=== PATIENT | male | born 1935 | race Asian ===

== ENCOUNTER 2016-10-26 12:00 | Inpatient (IN) | payer MEDICARE, MEDICAID ==
[~2016-10-26] VITALS: Ht 162.6 cm; Wt 57.3 kg
[~2016-10-26 12:00] MED LIST: ASPI-825 PO; CLOP75 PO; EZET1TAB8 PO; GLYB5TAB8 PO; PIOG15TA13 PO; VALS160T2 PO
[2016-10-26] MEDS ORDERED: SIMV5TAB6 PO (12:17)
[2016-10-26] MEDS ORDERED: ROSU20 PO (12:17)
[2016-10-26] MEDS ORDERED: MULT-1259 PO (12:17)
[2016-10-26 13:47] LABS: BASOPHILS % (AUTO) 0.2 % (0.0-2.0); EOSINOPHILS % (AUTO) 3.6 % (1.0-6.0); HEMOGLOBIN 12.5 g/dL (13.5-17.5); LYMPHOCYTES # (AUTO) 1.3 K/uL (1.0-4.8); LYMPHOCYTES % (AUTO) 21.1 % (22.0-44.0); MEAN CORPUSCULAR HGB CONC 32.8 G/dL (31.0-37.0); MEAN CORPUSCULAR VOLUME 91 fL (80-100); MONOCYTES # (AUTO) 0.5 K/uL (0.1-1.0); MONOCYTES % (AUTO) 8.4 % (2.0-9.0); NEUTROPHILS % (AUTO) 66.7 % (40.0-70.0); PLATELET COUNT (AUTO) 222 K/uL (150-450); RED BLOOD CELL COUNT(AUTO) 4.16 MIL/uL (4.50-5.90); RED CELL DISTRIBUTION WIDTH 13.2 % (11.5-14.5); WHITE BLOOD COUNT (AUTO) 6.1 K/uL (4.5-11.0)
[2016-10-26 13:57] LABS: PROTHROMBIN TIME 10.3 SEC (9.4-11.6)
[2016-10-26 14:01] LABS: ANION GAP 3 mmol/L (8-16); CARBON DIOXIDE 29 mmol/L (22-29); CHLORIDE 106 mmol/L (98-107); CREATININE 4.57 mg/dL (0.60-1.30); GLOMERULAR FILTR. RATE CALC 12 mL/min (>60); POTASSIUM 3.3 mmol/L (3.5-5.1); SODIUM SERUM 138 mmol/L (136-145); UREA NITROGEN, BLOOD 38 mg/dL (7-18)
[2016-10-26 14:15] LABS: B-TYPE NATRIURETIC PEPTIDE 800 pg/mL (0-100)
[2016-10-26] MEDS ORDERED: CloNIDine HCL 0.2 MG TABLET PO ONE (14:15)
[2016-10-26 14:31] LABS: APPEARANCE,URINE CLEAR (CLEAR); GLUCOSE, URINE (UA) 500 mg/dL (NEGATIVE); KETONES,URINE NEGATIVE (NEGATIVE); LEUKOCYTE ESTERASE ,URINE NEGATIVE (NEGATIVE); OCCULT BLOOD,URINE SMALL (NEGATIVE); PROTEIN,URINE SEE CONFIRM (NEGATIVE)
[2016-10-26 14:32] LABS: ADD UA MICROSCOPIC YES
[2016-10-26 14:35] LABS: SULFOSALICYLIC ACID,URINE Negative (Negative)
[2016-10-26 14:39] LABS: ALANINE AMINOTRANSFERASE 16 U/L (12-78); ALBUMIN 2.6 g/dL (3.4-5.0); ASPARTATE AMINOTRANSFERASE 19 U/L (15-37); BILIRUBIN,TOTAL 0.4 mg/dL (0.1-1.0); CREATINE KINASE MB 2.5 ng/mL (0-5); CREATINE KINASE, TOTAL 213 U/L (39-308); TOTAL PROTEIN, SERUM 6.7 g/dL (6.4-8.2)
[2016-10-26 14:42] LABS: RBC,URINE 0-2 /HPF (0-2); WBC,URINE 0-2 /HPF (0-5)
[2016-10-26] MEDS ORDERED: FUROSEMIDE 40 MG/4 ML VIAL IVP ONE (14:45)
[2016-10-26 14:46] LABS: GLUCOSE,POINT OF CARE 131 MG/DL (70-110)
[2016-10-26] MEDS ORDERED: POTASSIUM CHLORIDE 20 MEQ ER TABLET PO ONE (15:00)
[2016-10-26] MEDS ORDERED: NITROGLYCERIN 2% (1 GM=INCH) PACKET TP ONE (15:30)
[2016-10-26] MEDS ORDERED: ACETAMINOPHEN 325 MG TABLET PO PRN ×2 (16:15→21:45)
[2016-10-26] MEDS ORDERED: ONDANSETRON HCL 4 MG/2 ML VIAL IVP PRN ×2 (16:15→21:45)
[2016-10-26] MEDS ORDERED: 0.9% SODIUM CHLORIDE 10 ML SYRINGE IVP PRN (16:15)
[2016-10-26] MEDS ORDERED: SODIUM CHLORIDE 0.9% 100 ML ONE (17:03)
[2016-10-26] MEDS ORDERED: IOVERSOL 350 MG/ML 100 ML VIAL ONE (17:03)
[2016-10-26 18:00] VITALS: BP 224/95
[2016-10-26] MEDS ORDERED: CLOPIDOGREL BISULFATE 75 MG TABLET PO ONE (18:15)
[2016-10-26] MEDS ORDERED: ASPIRIN 81 MG CHEWABLE TABLET PO ONE (18:15)
[2016-10-26] MEDS: NITROGLYCERIN 50 MG/D5% WATER 250 ML IV PRN (19:35)
[2016-10-26 20:00] VITALS: BP 198/82
[2016-10-26] MEDS ORDERED: ZOLPIDEM TARTRATE 5 MG TABLET PO PRN (21:45)
[2016-10-26] MEDS: HEPARIN SODIUM,PORCINE 5,000 UNITS/ML VIAL SQ SCH (23:23)
[2016-10-27] VITALS: BP 198/81
[2016-10-27] MEDS: HydrALAZINE HCL 20 MG/ML VIAL IVP PRN ×3 (01:47→21:06)
[2016-10-27 04:00] VITALS: BP 175/96
[2016-10-27 05:51] LABS: BASOPHILS % (AUTO) 0.3 % (0.0-2.0); EOSINOPHILS % (AUTO) 2.4 % (1.0-6.0); HEMATOCRIT 35.9 % (41-53); HEMOGLOBIN 11.7 g/dL (13.5-17.5); LYMPHOCYTES # (AUTO) 1.6 K/uL (1.0-4.8); LYMPHOCYTES % (AUTO) 19.6 % (22.0-44.0); MEAN CORPUSCULAR HEMOGLOBIN 30.1 pg (26.0-34.0); MEAN CORPUSCULAR HGB CONC 32.6 G/dL (31.0-37.0); MEAN CORPUSCULAR VOLUME 92 fL (80-100); MONOCYTES # (AUTO) 0.6 K/uL (0.1-1.0); NEUTROPHILS # (AUTO) 5.8 K/uL (1.8-7.7); NEUTROPHILS % (AUTO) 70.7 % (40.0-70.0); PLATELET COUNT (AUTO) 212 K/uL (150-450); RED BLOOD CELL COUNT(AUTO) 3.89 MIL/uL (4.50-5.90); RED CELL DISTRIBUTION WIDTH 13.5 % (11.5-14.5); WHITE BLOOD COUNT (AUTO) 8.2 K/uL (4.5-11.0)
[2016-10-27] MEDS: NITROGLYCERIN 50 MG/D5% WATER 250 ML IV PRN ×2 (06:26→16:11)
[2016-10-27 06:53] LABS: ALBUMIN 2.5 g/dL (3.4-5.0); BILIRUBIN,TOTAL 0.4 mg/dL (0.1-1.0); CALCIUM, TOTAL 7.8 mg/dL (8.8-10.5); CREATININE 4.57 mg/dL (0.60-1.30); POTASSIUM 4.2 mmol/L (3.5-5.1); TOTAL PROTEIN, SERUM 6.1 g/dL (6.4-8.2)
[2016-10-27 08:00] VITALS: BP 165/65
[2016-10-27] MEDS ORDERED: GlyBURIDE 5 MG TABLET PO SCH (08:00)
[2016-10-27] MEDS ORDERED: MISC MED-CONVERTED FROM AMBULATORY (Aspirin 81 MG) PO SCH (09:00)
[2016-10-27] MEDS ORDERED: PIOGLITAZONE HCL 15 MG TABLET PO SCH (09:00)
[2016-10-27] MEDS ORDERED: CLOPIDOGREL BISULFATE 75 MG TABLET PO SCH (09:00)
[2016-10-27] MEDS: CLOPIDOGREL BISULFATE 75 MG TABLET PO SCH (09:35)
[2016-10-27] MEDS: VALSARTAN 160 MG TABLET PO SCH (09:35)
[2016-10-27] MEDS: PANTOPRAZOLE SODIUM 40 MG DR TABLET PO SCH (09:35)
[2016-10-27] MEDS: ASPIRIN 81 MG CHEWABLE TABLET PO SCH (09:35)
[2016-10-27] MEDS: HEPARIN SODIUM,PORCINE 5,000 UNITS/ML VIAL SQ SCH ×2 (09:35→16:00)
[2016-10-27] MEDS: ROSUVASTATIN CALCIUM 20 MG TABLET PO SCH (09:36)
[2016-10-27 12:00] VITALS: BP 142/66
[2016-10-27 16:00] VITALS: BP 165/83
[2016-10-27] MEDS ORDERED: DEXTROSE 50%-WATER 25 GM/50 ML SYRINGE IVP PRN (16:30)
[2016-10-27 20:00] VITALS: BP 191/123
[2016-10-27] MEDS: OxyCODONE HCL/ACETAMINOPHEN 5-325 MG TABLET PO PRN (20:30)
[2016-10-27] MEDS: INSULIN ASPART 100 UNITS/ML SQ PRN (20:32)
[2016-10-28] VITALS: BP 160/108
[2016-10-28] MEDS: HEPARIN SODIUM,PORCINE 5,000 UNITS/ML VIAL SQ SCH ×4 (00:08→23:46)
[2016-10-28 04:00] VITALS: BP 181/72
[2016-10-28] MEDS: HydrALAZINE HCL 20 MG/ML VIAL IVP PRN ×5 (04:44→23:47)
[2016-10-28 05:07] LABS: GLUCOSE COMMENT 1 Received Meds; GLUCOSE,POINT OF CARE 366 MG/DL (70-110)
[2016-10-28 05:07] LABS: GLUCOSE,POINT OF CARE 142 MG/DL (70-110)
[2016-10-28 05:23] LABS: BASOPHILS # (AUTO) 0.02 K/uL (0.00-0.20); BASOPHILS % (AUTO) 0.2 % (0.0-2.0); EOSINOPHILS % (AUTO) 0.01 % (1.0-6.0); HEMATOCRIT 37.2 % (41-53); HEMOGLOBIN 12.6 g/dL (13.5-17.5); LYMPHOCYTES # (AUTO) 1.4 K/uL (1.0-4.8); LYMPHOCYTES % (AUTO) 12.4 % (22.0-44.0); MEAN CORPUSCULAR HEMOGLOBIN 30.7 pg (26.0-34.0); MEAN CORPUSCULAR HGB CONC 33.8 G/dL (31.0-37.0); MEAN CORPUSCULAR VOLUME 91 fL (80-100); MONOCYTES # (AUTO) 0.9 K/uL (0.1-1.0); MONOCYTES % (AUTO) 7.7 % (2.0-9.0); NEUTROPHILS % (AUTO) 79.7 % (40.0-70.0); PLATELET COUNT (AUTO) 259 K/uL (150-450); RED BLOOD CELL COUNT(AUTO) 4.09 MIL/uL (4.50-5.90); RED CELL DISTRIBUTION WIDTH 14.1 % (11.5-14.5); WHITE BLOOD COUNT (AUTO) 11.3 K/uL (4.5-11.0)
[2016-10-28 05:29] LABS: CALCIUM, TOTAL 8.5 mg/dL (8.8-10.5); CREATININE 5.34 mg/dL (0.60-1.30); POTASSIUM 3.7 mmol/L (3.5-5.1)
[2016-10-28 08:00] VITALS: BP 204/141
[2016-10-28] MEDS ORDERED: LABETALOL HCL 200 MG in DEXTROSE 5%-WATER 160 ML IV PRN (08:15)
[2016-10-28] MEDS: PANTOPRAZOLE SODIUM 40 MG DR TABLET PO SCH (08:18)
[2016-10-28] MEDS: ASPIRIN 81 MG CHEWABLE TABLET PO SCH (08:18)
[2016-10-28] MEDS: ROSUVASTATIN CALCIUM 20 MG TABLET PO SCH (08:18)
[2016-10-28] MEDS: VALSARTAN 160 MG TABLET PO SCH (08:19)
[2016-10-28] MEDS: CLOPIDOGREL BISULFATE 75 MG TABLET PO SCH (08:19)
[2016-10-28] MEDS ORDERED: AmLODIPine BESYLATE 2.5 MG TABLET PO SCH (09:00)
[2016-10-28 12:00] VITALS: BP 172/139
[2016-10-28] MEDS: INSULIN ASPART 100 UNITS/ML SQ PRN ×3 (12:42→21:07)
[2016-10-28 14:16] LABS: GLUCOSE COMMENT 1 Received Meds; GLUCOSE,POINT OF CARE 249 MG/DL (70-110)
[2016-10-28 16:00] VITALS: BP 146/74
[2016-10-28] MEDS ORDERED: 0.9% SODIUM CHLORIDE 10 ML SYRINGE IVP PRN (16:15)
[2016-10-28 19:21] LABS: HEMOGLOBIN A1C 9.1 % (4.5-6.2)
[2016-10-28 19:32] LABS: CHOL/HDL RATIO 2.6 (4.2-7.3); THYROID STIMULATING HORMONE 2.03 uIU/mL (0.36-3.74)
[2016-10-28 20:00] VITALS: BP 158/48
[2016-10-29] VITALS (8 sets, daily range): BP systolic 135–181; BP diastolic 58–115
[2016-10-29] MEDS: OxyCODONE HCL/ACETAMINOPHEN 5-325 MG TABLET PO PRN (01:38)
[2016-10-29] MEDS: HydrALAZINE HCL 20 MG/ML VIAL IVP PRN ×2 (04:05→09:03)
[2016-10-29 05:32] LABS: CREATININE 6.26 mg/dL (0.60-1.30); MAGNESIUM 2.6 mg/dL (1.80-2.40); PHOSPHORUS 5.8 mg/dL (2.5-4.9); POTASSIUM 4.6 mmol/L (3.5-5.1)
[2016-10-29 05:50] LABS: BASOPHILS % (AUTO) 0.1 % (0.0-2.0); EOSINOPHILS % (AUTO) 0 % (1.0-6.0); HEMATOCRIT 36.1 % (41-53); HEMOGLOBIN 11.9 g/dL (13.5-17.5); LYMPHOCYTES # (AUTO) 0.9 K/uL (1.0-4.8); LYMPHOCYTES % (AUTO) 8.8 % (22.0-44.0); MEAN CORPUSCULAR HEMOGLOBIN 30.3 pg (26.0-34.0); MEAN CORPUSCULAR VOLUME 92 fL (80-100); MONOCYTES # (AUTO) 0.6 K/uL (0.1-1.0); MONOCYTES % (AUTO) 5.6 % (2.0-9.0); NEUTROPHILS # (AUTO) 8.7 K/uL (1.8-7.7); NEUTROPHILS % (AUTO) 85.5 % (40.0-70.0); PLATELET COUNT (AUTO) 247 K/uL (150-450); RED BLOOD CELL COUNT(AUTO) 3.94 MIL/uL (4.50-5.90); RED CELL DISTRIBUTION WIDTH 13.9 % (11.5-14.5); WHITE BLOOD COUNT (AUTO) 10.2 K/uL (4.5-11.0)
[2016-10-29] MEDS: INSULIN ASPART 100 UNITS/ML SQ PRN ×4 (06:00→20:42)
[2016-10-29 06:06] LABS: GLUCOSE COMMENT 1 Received Meds; GLUCOSE,POINT OF CARE 204 MG/DL (70-110)
[2016-10-29 06:07] LABS: GLUCOSE COMMENT 1 Received Meds; GLUCOSE,POINT OF CARE 149 MG/DL (70-110)
[2016-10-29] MEDS: HEPARIN SODIUM,PORCINE 5,000 UNITS/ML VIAL SQ SCH ×2 (08:32→17:34)
[2016-10-29] MEDS: ASPIRIN 325 MG TABLET PO SCH (08:33)
[2016-10-29] MEDS: CLOPIDOGREL BISULFATE 75 MG TABLET PO SCH (08:33)
[2016-10-29] MEDS: PANTOPRAZOLE SODIUM 40 MG DR TABLET PO SCH (08:33)
[2016-10-29] MEDS: AmLODIPine BESYLATE 10 MG TABLET PO SCH (08:33)
[2016-10-29] MEDS: ROSUVASTATIN CALCIUM 20 MG TABLET PO SCH (08:35)
[2016-10-29] MEDS ORDERED: BISACODYL 5 MG EC TABLET PO PRN (11:30)
[2016-10-29] MEDS: CARVEDILOL 3.125 MG TABLET PO SCH ×2 (12:23→20:41)
[2016-10-29] MEDS ORDERED: FUROSEMIDE 40 MG/4 ML VIAL IVP ONE (14:15)
[2016-10-29 15:56] LABS: GLUCOSE,POINT OF CARE 164 MG/DL (70-110)
[2016-10-29] MEDS ORDERED: METOLAZONE 5 MG TABLET PO ONE (17:15)
[2016-10-29 17:31] LABS: GLUCOSE,POINT OF CARE 164 MG/DL (70-110)
[2016-10-29 19:31] LABS: GLUCOSE COMMENT 1 Received Meds; GLUCOSE,POINT OF CARE 161 MG/DL (70-110)
[2016-10-29] MEDS: BUMETANIDE 0.25 MG/ML 10 ML VIAL IVP SCH (20:41)
[2016-10-30] VITALS (10 sets, daily range): BP systolic 143–188; BP diastolic 68–88
[2016-10-30] MEDS: HEPARIN SODIUM,PORCINE 5,000 UNITS/ML VIAL SQ SCH ×3 (00:09→16:00)
[2016-10-30] MEDS: HydrALAZINE HCL 20 MG/ML VIAL IVP PRN ×2 (05:53→11:40)
[2016-10-30 06:51] LABS: GLUCOSE,POINT OF CARE 137 MG/DL (70-110)
[2016-10-30 07:16] LABS: BASOPHILS # (AUTO) 0.02 K/uL (0.00-0.20); BASOPHILS % (AUTO) 0.2 % (0.0-2.0); EOSINOPHILS % (AUTO) 1.08 % (1.0-6.0); HEMATOCRIT 37.1 % (41-53); HEMOGLOBIN 12.5 g/dL (13.5-17.5); LYMPHOCYTES # (AUTO) 1.2 K/uL (1.0-4.8); LYMPHOCYTES % (AUTO) 12.9 % (22.0-44.0); MEAN CORPUSCULAR HEMOGLOBIN 30.6 pg (26.0-34.0); MEAN CORPUSCULAR HGB CONC 33.7 G/dL (31.0-37.0); MEAN CORPUSCULAR VOLUME 91 fL (80-100); MONOCYTES # (AUTO) 0.7 K/uL (0.1-1.0); MONOCYTES % (AUTO) 7.5 % (2.0-9.0); NEUTROPHILS # (AUTO) 7.3 K/uL (1.8-7.7); NEUTROPHILS % (AUTO) 78.3 % (40.0-70.0); PLATELET COUNT (AUTO) 251 K/uL (150-450); RED BLOOD CELL COUNT(AUTO) 4.08 MIL/uL (4.50-5.90); RED CELL DISTRIBUTION WIDTH 14.1 % (11.5-14.5); WHITE BLOOD COUNT (AUTO) 9.3 K/uL (4.5-11.0)
[2016-10-30 07:52] LABS: CALCIUM, TOTAL 7.8 mg/dL (8.8-10.5); CREATININE 6.75 mg/dL (0.60-1.30); MAGNESIUM 2.5 mg/dL (1.80-2.40); PHOSPHORUS 5.3 mg/dL (2.5-4.9); POTASSIUM 4.5 mmol/L (3.5-5.1)
[2016-10-30] MEDS: ASPIRIN 325 MG TABLET PO SCH (08:26)
[2016-10-30] MEDS: CARVEDILOL 3.125 MG TABLET PO SCH ×2 (08:26→21:40)
[2016-10-30] MEDS: ROSUVASTATIN CALCIUM 20 MG TABLET PO SCH (08:26)
[2016-10-30] MEDS: CLOPIDOGREL BISULFATE 75 MG TABLET PO SCH (08:27)
[2016-10-30] MEDS: AmLODIPine BESYLATE 10 MG TABLET PO SCH (08:27)
[2016-10-30] MEDS: BUMETANIDE 0.25 MG/ML 10 ML VIAL IVP SCH ×2 (08:28→21:39)
[2016-10-30] MEDS: PANTOPRAZOLE SODIUM 40 MG DR TABLET PO SCH (08:29)
[2016-10-30] MEDS ORDERED: HEPARIN SODIUM 1000 UNITS/NS 500 ML ONE (12:23)
[2016-10-30] MEDS ORDERED: LIDOCAINE HCL 1%/EPI 1:200,000/PF 10 ML VIAL ONE (12:24)
[2016-10-30] MEDS ORDERED: HEPARIN SODIUM,PORCINE 1,000 UNITS/ML 10 ML VIAL ONE (12:24)
[2016-10-30] MEDS ORDERED: MIDAZOLAM HCL 2 MG/2 ML VIAL ONE (12:42)
[2016-10-30] MEDS ORDERED: FentaNYL CITRATE-PF 100 MCG/2 ML VIAL ONE (12:42)
[2016-10-30] MEDS: INSULIN ASPART 100 UNITS/ML SQ PRN ×3 (19:18→21:40)
[2016-10-31] VITALS (7 sets, daily range): BP systolic 149–200; BP diastolic 59–104
[2016-10-31] MEDS: HEPARIN SODIUM,PORCINE 5,000 UNITS/ML VIAL SQ SCH ×4 (00:50→23:50)
[2016-10-31 02:52] LABS: GLUCOSE COMMENT 1 Received Meds; GLUCOSE,POINT OF CARE 162 MG/DL (70-110)
[2016-10-31] MEDS: INSULIN ASPART 100 UNITS/ML SQ PRN ×4 (06:10→20:27)
[2016-10-31 07:27] LABS: GLUCOSE COMMENT 1 Received Meds; GLUCOSE,POINT OF CARE 166 MG/DL (70-110)
[2016-10-31] MEDS: HydrALAZINE HCL 20 MG/ML VIAL IVP PRN (07:35)
[2016-10-31 08:16] LABS: CREATININE 5.57 mg/dL (0.60-1.30); MAGNESIUM 2.3 mg/dL (1.80-2.40); PHOSPHORUS 4.8 mg/dL (2.5-4.9)
[2016-10-31] MEDS ORDERED: SODIUM CHLORIDE 0.9% 2,000 ML IV ONE (08:34)
[2016-10-31] MEDS: BUMETANIDE 0.25 MG/ML 10 ML VIAL IVP SCH ×2 (09:00→20:07)
[2016-10-31 09:41] LABS: ALBUMIN URINE (ELP24) 60.8 %; ALPHA-1 URINE (ELP24) 0.6 %; ALPHA-2 URINE(ELP24) 7.8 %; BETA URINE(ELP24) 12.3 %; GAMMA URINE(ELP24) 18.5 %; TOTAL PROTEIN URINE 853.5 mg/dL (Not Estab.)
[2016-10-31 11:49] LABS: GLUCOSE,POINT OF CARE 186 MG/DL (70-110)
[2016-10-31 12:03] LABS: GLUCOSE,POINT OF CARE 147 MG/DL (70-110)
[2016-10-31] MEDS: PANTOPRAZOLE SODIUM 40 MG DR TABLET PO SCH (12:11)
[2016-10-31] MEDS: CLOPIDOGREL BISULFATE 75 MG TABLET PO SCH (12:11)
[2016-10-31] MEDS: ASPIRIN 325 MG TABLET PO SCH (12:11)
[2016-10-31] MEDS: AmLODIPine BESYLATE 10 MG TABLET PO SCH (12:11)
[2016-10-31 12:12] LABS: GLUCOSE,POINT OF CARE 144 MG/DL (70-110)
[2016-10-31] MEDS: ROSUVASTATIN CALCIUM 20 MG TABLET PO SCH (12:12)
[2016-10-31] MEDS ORDERED: HEPARIN SODIUM,PORCINE 5,000 UNITS/ML VIAL SQ ONE (17:12)
[2016-10-31] MEDS ORDERED: HEPARIN SODIUM,PORCINE 1,000 UNITS/ML VIAL IVP ONE ×2 (17:12→18:35)
[2016-10-31] MEDS: CARVEDILOL 6.25 MG TABLET PO SCH (20:07)
[2016-11-01 04:30] VITALS: BP 158/90
[2016-11-01] MEDS: INSULIN ASPART 100 UNITS/ML SQ PRN ×4 (06:10→20:14)
[2016-11-01 07:32] LABS: GLUCOSE,POINT OF CARE 148 MG/DL (70-110)
[2016-11-01 07:34] VITALS: BP 168/91
[2016-11-01 07:36] LABS: GLUCOSE COMMENT 1 Received Meds; GLUCOSE,POINT OF CARE 204 MG/DL (70-110)
[2016-11-01 07:47] LABS: CALCIUM, TOTAL 7.9 mg/dL (8.8-10.5); CREATININE 4.33 mg/dL (0.60-1.30); MAGNESIUM 2.1 mg/dL (1.80-2.40); POTASSIUM 3.9 mmol/L (3.5-5.1)
[2016-11-01] MEDS: CLOPIDOGREL BISULFATE 75 MG TABLET PO SCH (08:09)
[2016-11-01] MEDS: ROSUVASTATIN CALCIUM 20 MG TABLET PO SCH (08:09)
[2016-11-01] MEDS: CARVEDILOL 6.25 MG TABLET PO SCH ×2 (08:09→20:13)
[2016-11-01] MEDS: AmLODIPine BESYLATE 10 MG TABLET PO SCH (08:09)
[2016-11-01] MEDS: BUMETANIDE 0.25 MG/ML 10 ML VIAL IVP SCH (08:09)
[2016-11-01] MEDS: ASPIRIN 325 MG TABLET PO SCH (08:09)
[2016-11-01] MEDS: PANTOPRAZOLE SODIUM 40 MG DR TABLET PO SCH (08:09)
[2016-11-01] MEDS: HEPARIN SODIUM,PORCINE 5,000 UNITS/ML VIAL SQ SCH ×2 (08:25→17:00)
[2016-11-01 11:34] VITALS: BP 125/77
[2016-11-01 15:10] VITALS: BP 142/67
[2016-11-01 19:47] LABS: GLUCOSE,POINT OF CARE 199 MG/DL (70-110)
[2016-11-01 19:47] LABS: GLUCOSE,POINT OF CARE 177 MG/DL (70-110)
[2016-11-01 19:47] LABS: GLUCOSE COMMENT 1 Received Meds; GLUCOSE,POINT OF CARE 215 MG/DL (70-110)
[2016-11-01 19:58] VITALS: BP 165/75
[2016-11-01 23:50] VITALS: BP 160/80
[2016-11-02] VITALS (7 sets, daily range): BP systolic 112–196; BP diastolic 64–88
[2016-11-02] MEDS: HEPARIN SODIUM,PORCINE 5,000 UNITS/ML VIAL SQ SCH ×3 (00:15→17:26)
[2016-11-02] MEDS: INSULIN ASPART 100 UNITS/ML SQ PRN ×4 (05:43→20:47)
[2016-11-02 08:00] LABS: CALCIUM, TOTAL 7.7 mg/dL (8.8-10.5); CREATININE 5.47 mg/dL (0.60-1.30); MAGNESIUM 2.1 mg/dL (1.80-2.40); PHOSPHORUS 3.8 mg/dL (2.5-4.9); POTASSIUM 3.7 mmol/L (3.5-5.1)
[2016-11-02] MEDS: HydrALAZINE HCL 20 MG/ML VIAL IVP PRN (08:35)
[2016-11-02] MEDS: CARVEDILOL 6.25 MG TABLET PO SCH ×2 (08:35→20:15)
[2016-11-02] MEDS: AmLODIPine BESYLATE 10 MG TABLET PO SCH (08:35)
[2016-11-02] MEDS: ASPIRIN 325 MG TABLET PO SCH (08:36)
[2016-11-02] MEDS: CLOPIDOGREL BISULFATE 75 MG TABLET PO SCH (08:36)
[2016-11-02] MEDS: PANTOPRAZOLE SODIUM 40 MG DR TABLET PO SCH (08:36)
[2016-11-02] MEDS: ROSUVASTATIN CALCIUM 20 MG TABLET PO SCH (08:36)
[2016-11-03] MEDS: HEPARIN SODIUM,PORCINE 5,000 UNITS/ML VIAL SQ SCH ×3 (00:04→16:11)
[2016-11-03 05:49] VITALS: BP 175/80
[2016-11-03 06:04] VITALS: BP 177/79
[2016-11-03 07:42] VITALS: BP 166/76
[2016-11-03 08:30] LABS: CALCIUM, TOTAL 8.1 mg/dL (8.8-10.5); CREATININE 6.06 mg/dL (0.60-1.30)
[2016-11-03] MEDS ORDERED: ALBUMIN HUMAN 25%-12.5GM/50ML IV BOTTLE IV PRN (08:30)
[2016-11-03] MEDS ORDERED: HEPARIN SODIUM,PORCINE 1,000 UNITS/ML VIAL IVP ONE ×2 (08:30)
[2016-11-03] MEDS ORDERED: MANNITOL 25%-12.5 GM/50 ML VIAL IVP PRN (08:30)
[2016-11-03] MEDS ORDERED: SODIUM CHLORIDE 0.9% 2,000 ML IV ONE (08:31)
[2016-11-03] MEDS: AmLODIPine BESYLATE 10 MG TABLET PO SCH ×2 (08:40→12:06)
[2016-11-03] MEDS: CLOPIDOGREL BISULFATE 75 MG TABLET PO SCH ×2 (08:40→12:06)
[2016-11-03] MEDS: ASPIRIN 325 MG TABLET PO SCH ×2 (08:40→12:06)
[2016-11-03] MEDS: PANTOPRAZOLE SODIUM 40 MG DR TABLET PO SCH ×2 (08:40→12:06)
[2016-11-03] MEDS: CARVEDILOL 6.25 MG TABLET PO SCH ×3 (08:40→20:58)
[2016-11-03] MEDS: ROSUVASTATIN CALCIUM 20 MG TABLET PO SCH ×2 (08:40→12:07)
[2016-11-03] MEDS: INSULIN ASPART 100 UNITS/ML SQ PRN ×3 (12:02→21:00)
[2016-11-03 16:00] VITALS: BP 161/73
[2016-11-03] MEDS ORDERED: HEPARIN SODIUM,PORCINE 1,000 UNITS/ML VIAL ONE (16:47)
[2016-11-03 20:32] VITALS: BP 141/72
[2016-11-04] MEDS: HEPARIN SODIUM,PORCINE 5,000 UNITS/ML VIAL SQ SCH ×4 (01:21→23:04)
[2016-11-04 04:17] VITALS: BP 154/75
[2016-11-04] MEDS: INSULIN ASPART 100 UNITS/ML SQ PRN ×4 (06:27→20:07)
[2016-11-04 07:38] VITALS: BP 162/81
[2016-11-04] MEDS: CLOPIDOGREL BISULFATE 75 MG TABLET PO SCH (08:45)
[2016-11-04] MEDS: PANTOPRAZOLE SODIUM 40 MG DR TABLET PO SCH (08:45)
[2016-11-04] MEDS: CARVEDILOL 6.25 MG TABLET PO SCH ×2 (08:45→20:06)
[2016-11-04] MEDS: AmLODIPine BESYLATE 10 MG TABLET PO SCH (08:45)
[2016-11-04] MEDS: ROSUVASTATIN CALCIUM 20 MG TABLET PO SCH (08:45)
[2016-11-04] MEDS: ASPIRIN 325 MG TABLET PO SCH (08:45)
[2016-11-04 10:28] LABS: BASOPHILS % (AUTO) 0.4 % (0.0-2.0); EOSINOPHILS % (AUTO) 0.5 % (1.0-6.0); HEMATOCRIT 43.9 % (41-53); HEMOGLOBIN 14.4 g/dL (13.5-17.5); LYMPHOCYTES # (AUTO) 1.2 K/uL (1.0-4.8); LYMPHOCYTES % (AUTO) 13.7 % (22.0-44.0); MEAN CORPUSCULAR HEMOGLOBIN 29.9 pg (26.0-34.0); MEAN CORPUSCULAR HGB CONC 32.9 G/dL (31.0-37.0); MEAN CORPUSCULAR VOLUME 91 fL (80-100); MONOCYTES # (AUTO) 1.5 K/uL (0.1-1.0); MONOCYTES % (AUTO) 16.3 % (2.0-9.0); NEUTROPHILS # (AUTO) 6.2 K/uL (1.8-7.7); NEUTROPHILS % (AUTO) 69.1 % (40.0-70.0); PLATELET COUNT (AUTO) 238 K/uL (150-450); RED BLOOD CELL COUNT(AUTO) 4.83 MIL/uL (4.50-5.90); RED CELL DISTRIBUTION WIDTH 13.8 % (11.5-14.5); WHITE BLOOD COUNT (AUTO) 8.9 K/uL (4.5-11.0)
[2016-11-04 10:53] LABS: ANION GAP 9 mmol/L (8-16); CALCIUM, TOTAL 7.9 mg/dL (8.8-10.5); CARBON DIOXIDE 23 mmol/L (22-29); CHLORIDE 99 mmol/L (98-107); CREATINE KINASE MB 1.1 ng/mL (0-5); CREATINE KINASE, TOTAL 124 U/L (39-308); CREATININE 5.26 mg/dL (0.60-1.30); GLOMERULAR FILTR. RATE CALC 11 mL/min (>60); POTASSIUM 4.3 mmol/L (3.5-5.1); SODIUM SERUM 131 mmol/L (136-145); UREA NITROGEN, BLOOD 60 mg/dL (7-18)
[2016-11-04 11:34] VITALS: BP 153/77
[2016-11-04] MEDS ORDERED: INFLUENZA VIRUS VACCINE QVS 2016-17 (3YR+)/PF 60 MCG/0.5 ML SYRINGE IM ONE (13:00)
[2016-11-04] MEDS ORDERED: PNEUMOCOCCAL VACCINE POLYVALENT 0.5 ML VIAL [PPSV23] IM ONE (13:00)
[2016-11-04 15:00] VITALS: BP 140/72
[2016-11-04 17:12] LABS: GLUCOSE COMMENT 1 Received Meds; GLUCOSE,POINT OF CARE 325 MG/DL (70-110)
[2016-11-04 17:32] VITALS: BP 132/59
[2016-11-04 17:37] LABS: GLUCOSE,POINT OF CARE 143 MG/DL (70-110)
[2016-11-04 17:42] LABS: GLUCOSE,POINT OF CARE 306 MG/DL (70-110)
[2016-11-04 20:53] VITALS: BP 145/60
[2016-11-04 22:02] LABS: GLUCOSE COMMENT 1 Received Meds; GLUCOSE,POINT OF CARE 225 MG/DL (70-110)
[2016-11-05] VITALS (7 sets, daily range): BP systolic 139–168; BP diastolic 63–89
[2016-11-05 03:21] LABS: APPEARANCE,URINE CLOUDY (CLEAR); GLUCOSE, URINE (UA) 250 mg/dL (NEGATIVE); KETONES,URINE NEGATIVE (NEGATIVE); LEUKOCYTE ESTERASE ,URINE NEGATIVE (NEGATIVE); OCCULT BLOOD,URINE LARGE (NEGATIVE); PH,URINE 5.5 (5.0-8.0); PROTEIN,URINE SEE CONFIRM (NEGATIVE)
[2016-11-05 03:23] LABS: ADD UA MICROSCOPIC YES
[2016-11-05 03:30] LABS: SQUAMOUS EPITHELIAL CELL,UR Rare /LPF (None Seen); WBC,URINE 0-2 /HPF (0-5)
[2016-11-05 03:31] LABS: AMORPHOUS SEDIMENT,UR Few /LPF (None Seen)
[2016-11-05 05:32] LABS: GLUCOSE COMMENT 1 Received Meds; GLUCOSE,POINT OF CARE 188 MG/DL (70-110)
[2016-11-05] MEDS: INSULIN ASPART 100 UNITS/ML SQ PRN ×3 (06:45→20:43)
[2016-11-05 07:58] LABS: ORIG DRAW (USER) MSIMS
[2016-11-05 08:06] LABS: CALCIUM, TOTAL 7.5 mg/dL (8.8-10.5); CREATININE 6.17 mg/dL (0.60-1.30)
[2016-11-05] MEDS: HEPARIN SODIUM,PORCINE 5,000 UNITS/ML VIAL SQ SCH ×2 (08:32→17:04)
[2016-11-05] MEDS: PANTOPRAZOLE SODIUM 40 MG DR TABLET PO SCH (08:32)
[2016-11-05] MEDS: AmLODIPine BESYLATE 10 MG TABLET PO SCH (08:32)
[2016-11-05] MEDS: ASPIRIN 325 MG TABLET PO SCH (08:32)
[2016-11-05] MEDS: ROSUVASTATIN CALCIUM 20 MG TABLET PO SCH (08:33)
[2016-11-05] MEDS: CLOPIDOGREL BISULFATE 75 MG TABLET PO SCH (08:33)
[2016-11-05] MEDS: CARVEDILOL 6.25 MG TABLET PO SCH ×2 (08:33→20:31)
[2016-11-05 08:36] LABS: GLUCOSE COMMENT 1 Received Meds; GLUCOSE,POINT OF CARE 232 MG/DL (70-110)
[2016-11-05 11:52] LABS: GLUCOSE COMMENT 1 Received Meds; GLUCOSE,POINT OF CARE 347 MG/DL (70-110)
[2016-11-05 15:02] LABS: GLUCOSE,POINT OF CARE 135 MG/DL (70-110)
[2016-11-05 15:23] LABS: GLUCOSE COMMENT 1 Received Meds; GLUCOSE,POINT OF CARE 182 MG/DL (70-110)
[2016-11-05 15:27] LABS: GLUCOSE,POINT OF CARE 257 MG/DL (70-110)
[2016-11-05 15:32] LABS: GLUCOSE COMMENT 1 Received Meds; GLUCOSE,POINT OF CARE 164 MG/DL (70-110)
[2016-11-05 15:32] LABS: GLUCOSE COMMENT 1 Received Meds; GLUCOSE,POINT OF CARE 272 MG/DL (70-110)
[2016-11-05 15:37] LABS: GLUCOSE COMMENT 1 Received Meds; GLUCOSE,POINT OF CARE 233 MG/DL (70-110)
[2016-11-05 17:46] LABS: GLUCOSE COMMENT 1 Received Meds; GLUCOSE,POINT OF CARE 314 MG/DL (70-110)
[2016-11-06] MEDS: HEPARIN SODIUM,PORCINE 5,000 UNITS/ML VIAL SQ SCH ×3 (00:12→16:00)
[2016-11-06 04:40] VITALS: BP 144/73
[2016-11-06] MEDS: INSULIN ASPART 100 UNITS/ML SQ PRN ×2 (05:58→20:30)
[2016-11-06 06:28] LABS: GLUCOSE COMMENT 1 Received Meds; GLUCOSE,POINT OF CARE 183 MG/DL (70-110)
[2016-11-06 07:07] LABS: CALCIUM, TOTAL 7.9 mg/dL (8.8-10.5); CREATININE 5.2 mg/dL (0.60-1.30); PHOSPHORUS 4.6 mg/dL (2.5-4.9); POTASSIUM 4.4 mmol/L (3.5-5.1)
[2016-11-06 08:12] VITALS: BP 149/64
[2016-11-06] MEDS ORDERED: SODIUM CHLORIDE 0.9% 2,000 ML IV ONE (08:13)
[2016-11-06] MEDS ORDERED: VITAMIN B COMP/VIT C/FOLIC ACID CAPSULE PO SCH (09:45)
[2016-11-06 11:17] LABS: GLUCOSE COMMENT 1 Received Meds; GLUCOSE,POINT OF CARE 262 MG/DL (70-110)
[2016-11-06 12:22] LABS: GLUCOSE COMMENT 1 Received Meds; GLUCOSE,POINT OF CARE 213 MG/DL (70-110)
[2016-11-06] MEDS: CLOPIDOGREL BISULFATE 75 MG TABLET PO SCH (13:26)
[2016-11-06] MEDS: CALCITRIOL 0.25 MCG CAPSULE PO SCH ×2 (13:26→13:28)
[2016-11-06] MEDS: AmLODIPine BESYLATE 10 MG TABLET PO SCH (13:26)
[2016-11-06] MEDS: PANTOPRAZOLE SODIUM 40 MG DR TABLET PO SCH (13:26)
[2016-11-06] MEDS: CARVEDILOL 6.25 MG TABLET PO SCH ×2 (13:26→20:01)
[2016-11-06] MEDS: ASPIRIN 325 MG TABLET PO SCH (13:27)
[2016-11-06] MEDS: ROSUVASTATIN CALCIUM 20 MG TABLET PO SCH (13:27)
[2016-11-06 17:50] VITALS: BP 129/57
[2016-11-06 18:41] LABS: GLUCOSE COMMENT 1 Received Meds; GLUCOSE,POINT OF CARE 260 MG/DL (70-110)
[2016-11-06 19:48] VITALS: BP 134/65
[2016-11-06] MEDS ORDERED: HEPARIN SODIUM,PORCINE 1,000 UNITS/ML VIAL IVP ONE (20:54)
[2016-11-06 23:11] LABS: GLUCOSE,POINT OF CARE 270 MG/DL (70-110)
[2016-11-12 14:06] LABS: GLUCOSE COMMENT 1 Received Meds; GLUCOSE,POINT OF CARE 169 MG/DL (70-110)
== END 2016-11-06 20:55 | DRG 64 ==
LOC: EMS 12:05 → 5N 15:13 → ICU 16:20 → AHU 10-29 13:30 → 5S 10-29 18:30 → 6N 11-04 15:30
PROVIDERS: ADMIT Hospitalist; ATTEND Hospitalist
PROC: 5A1D60Z (ICD-10-PCS; principal; 2016-10-30)
PROC: 05HM33Z Insertion of Infusion Device into Right Internal Jugular Vein, Percutaneous Approach (ICD-10-PCS; 2016-10-30)
PROC: B543ZZA Ultrasonography of Right Jugular Veins, Guidance (ICD-10-PCS; 2016-10-30)
DX: I63.9 Cerebral infarction, unspecified (principal); E43 Unspecified severe protein-calorie malnutrition; G93.41 Metabolic encephalopathy; N18.6 End stage renal disease; E87.1 Hypo-osmolality and hyponatremia; G81.94 Hemiplegia, unspecified affecting left nondominant side; I16.9 Hypertensive crisis, unspecified; J90 Pleural effusion, not elsewhere classified; N17.9 Acute kidney failure, unspecified; R41.4 Neurologic neglect syndrome; I13.2 Hypertensive heart and chronic kidney disease with heart failure and with stage 5 chronic kidney disease, or end stage renal disease; I50.32 Chronic diastolic (congestive) heart failure; E11.21 Type 2 diabetes mellitus with diabetic nephropathy; E11.22 Type 2 diabetes mellitus with diabetic chronic kidney disease; R55 Syncope and collapse; E78.5 Hyperlipidemia, unspecified; E87.6 Hypokalemia; D64.9 Anemia, unspecified; I66.9 Occlusion and stenosis of unspecified cerebral artery; Z86.73 Personal history of transient ischemic attack (TIA), and cerebral infarction without residual deficits; Z79.01 Long term (current) use of anticoagulants; Z79.82 Long term (current) use of aspirin; Z79.4 Long term (current) use of insulin; Z79.899 Other long term (current) drug therapy; Z28.21 Immunization not carried out because of patient refusal; Z68.21 Body mass index [BMI] 21.0-21.9, adult
CPT/HCPCS: 36245; 36561; 70450; 70496; 70551; 76770; 76937; 81050; 82575; 82607; 82746; 82962; 83036; 83735; 83874; 83970; 84100; 84156; 84166; 84300; 84443; 84540; 87340; 90935; 92610; 93005; 93306; 93880; 96374; 97110; 97112; 97163; 97167; 97530; 97535; 99285; J0360; J1644; J1940; J2250; J3010; J3490; J7030; J7050; J7060

== ENCOUNTER 2016-11-08 16:11 | Inpatient (IN) | payer MEDICARE, MEDICAID ==
[~2016-11-08] VITALS: Ht 162.6 cm; Wt 57.3 kg
[~2016-11-08 16:11] MED LIST changes: -EZET1TAB8 PO; +MULT-1259 PO; +PIOG15 PO; -PIOG15TA13 PO; +ROSU20 PO; +SIMV5TAB6 PO
[2016-11-08 16:37] LABS: GLUCOSE,POINT OF CARE 572 MG/DL (70-110)
[2016-11-08] MEDS ORDERED: [UNRECOGNIZED DRUG - CODE] SQ (16:37)
[2016-11-08] MEDS ORDERED: PANT40TA25 PO ×2 (16:37→20:41)
[2016-11-08] MEDS ORDERED: FOLI1CAP2 PO ×2 (16:37→20:41)
[2016-11-08] MEDS ORDERED: DSS100 PO ×2 (16:37→20:41)
[2016-11-08] MEDS ORDERED: CARV6 PO ×2 (16:37→20:41)
[2016-11-08] MEDS ORDERED: AMLO-512 PO ×2 (16:37→20:41)
[2016-11-08] MEDS ORDERED: CALC25 PO ×2 (16:37→20:41)
[2016-11-08 17:38] LABS: BASOPHILS % (AUTO) 0.2 % (0.0-2.0); EOSINOPHILS % (AUTO) 0 % (1.0-6.0); HEMATOCRIT 42.4 % (41-53); LYMPHOCYTES % (AUTO) 7.7 % (22.0-44.0); MEAN CORPUSCULAR HEMOGLOBIN 30.1 pg (26.0-34.0); MEAN CORPUSCULAR HGB CONC 33.1 G/dL (31.0-37.0); MEAN CORPUSCULAR VOLUME 91 fL (80-100); MONOCYTES % (AUTO) 8.3 % (2.0-9.0); NEUTROPHILS # (AUTO) 10.3 K/uL (1.8-7.7); NEUTROPHILS % (AUTO) 83.8 % (40.0-70.0); PLATELET COUNT (AUTO) 243 K/uL (150-450); RED BLOOD CELL COUNT(AUTO) 4.66 MIL/uL (4.50-5.90); RED CELL DISTRIBUTION WIDTH 13.5 % (11.5-14.5); WHITE BLOOD COUNT (AUTO) 12.3 K/uL (4.5-11.0)
[2016-11-08 17:53] LABS: INR 0.9 (0.9-1.1); PROTHROMBIN TIME 9.8 SEC (9.4-11.6)
[2016-11-08 18:01] LABS: ALANINE AMINOTRANSFERASE 19 U/L (12-78); ALBUMIN 2.4 g/dL (3.4-5.0); ANION GAP 16 mmol/L (8-16); ASPARTATE AMINOTRANSFERASE 21 U/L (15-37); BILIRUBIN,TOTAL 0.3 mg/dL (0.1-1.0); CALCIUM, TOTAL 7.1 mg/dL (8.8-10.5); CARBON DIOXIDE 19 mmol/L (22-29); CHLORIDE 94 mmol/L (98-107); CREATINE KINASE, TOTAL 58 U/L (39-308); CREATININE 7.59 mg/dL (0.60-1.30); GLOMERULAR FILTR. RATE CALC 7 mL/min (>60); POTASSIUM 5.3 mmol/L (3.5-5.1); SODIUM SERUM 129 mmol/L (136-145); TOTAL PROTEIN, SERUM 7.2 g/dL (6.4-8.2); UREA NITROGEN, BLOOD 98 mg/dL (7-18)
[2016-11-08] MEDS ORDERED: INSULIN REGULAR, HUMAN 100 UNITS/ML IVP ONE ×2 (18:15→20:45)
[2016-11-08] MEDS ORDERED: HEPA500017 SQ (18:15)
[2016-11-08 18:56] LABS: GLUCOSE,POINT OF CARE 450 MG/DL (70-110)
[2016-11-08] MEDS ORDERED: ACETAMINOPHEN 325 MG TABLET PO PRN (19:30)
[2016-11-08] MEDS ORDERED: ONDANSETRON HCL 4 MG/2 ML VIAL IVP PRN (19:30)
[2016-11-08] MEDS ORDERED: 0.9% SODIUM CHLORIDE 10 ML SYRINGE IVP PRN (19:30)
[2016-11-08 19:52] LABS: GLUCOSE,POINT OF CARE 425 MG/DL (70-110)
[2016-11-08] MEDS ORDERED: ROSU20 PO (20:41)
[2016-11-08] MEDS ORDERED: BISA10S PR (20:41)
[2016-11-08] MEDS ORDERED: HEPA500035 SQ (20:41)
[2016-11-08] MEDS ORDERED: ACET-784 PO (20:41)
[2016-11-08] MEDS ORDERED: CLOP75 PO (20:41)
[2016-11-08] MEDS ORDERED: ASPI325T PO (20:41)
[2016-11-08 21:47] LABS: GLUCOSE,POINT OF CARE 311 MG/DL (70-110)
[2016-11-09 06:40] LABS: ALBUMIN 2.4 g/dL (3.4-5.0); BILIRUBIN,TOTAL 0.3 mg/dL (0.1-1.0); CALCIUM, TOTAL 7.5 mg/dL (8.8-10.5); CREATININE 7.67 mg/dL (0.60-1.30); POTASSIUM 4.8 mmol/L (3.5-5.1); TOTAL PROTEIN, SERUM 7.7 g/dL (6.4-8.2)
[2016-11-09 06:41] LABS: BASOPHILS # (AUTO) 0.02 K/uL (0.00-0.20); BASOPHILS % (AUTO) 0.2 % (0.0-2.0); EOSINOPHILS # (AUTO) 0.01 K/uL (0.00-0.70); EOSINOPHILS % (AUTO) 0.05 % (1.0-6.0); HEMATOCRIT 42.4 % (41-53); HEMOGLOBIN 14.2 g/dL (13.5-17.5); LYMPHOCYTES # (AUTO) 1.1 K/uL (1.0-4.8); LYMPHOCYTES % (AUTO) 8.2 % (22.0-44.0); MEAN CORPUSCULAR HEMOGLOBIN 30.1 pg (26.0-34.0); MEAN CORPUSCULAR HGB CONC 33.5 G/dL (31.0-37.0); MEAN CORPUSCULAR VOLUME 90 fL (80-100); MONOCYTES # (AUTO) 1.2 K/uL (0.1-1.0); MONOCYTES % (AUTO) 8.9 % (2.0-9.0); NEUTROPHILS % (AUTO) 82.7 % (40.0-70.0); PLATELET COUNT (AUTO) 238 K/uL (150-450); RED BLOOD CELL COUNT(AUTO) 4.72 MIL/uL (4.50-5.90); RED CELL DISTRIBUTION WIDTH 13.1 % (11.5-14.5); WHITE BLOOD COUNT (AUTO) 13.3 K/uL (4.5-11.0)
[2016-11-09] MEDS ORDERED: ALBUTEROL SULFATE 2.5 MG/0.5 ML NEB SOLUTION NEB ONE (06:45)
[2016-11-09] MEDS ORDERED: IPRATROPIUM BROMIDE 0.5 MG/2.5 ML NEB SOLUTION NEB ONE (06:45)
[2016-11-09] MEDS ORDERED: HEPARIN SODIUM,PORCINE 1,000 UNITS/ML VIAL IVP ONE (12:00)
[2016-11-09] MEDS: CLOPIDOGREL BISULFATE 75 MG TABLET PO SCH (12:00)
[2016-11-09] MEDS: VITAMIN B COMP/VIT C/FOLIC ACID CAPSULE PO SCH (12:21)
[2016-11-09] MEDS: AmLODIPine BESYLATE 10 MG TABLET PO SCH (12:22)
[2016-11-09 12:37] LABS: GLUCOSE,POINT OF CARE 172 MG/DL (70-110)
[2016-11-09 14:58] VITALS: BP 153/57
[2016-11-09 19:28] VITALS: BP 138/49
[2016-11-09] MEDS: ROSUVASTATIN CALCIUM 20 MG TABLET PO SCH (21:00)
[2016-11-10] VITALS (8 sets, daily range): BP systolic 134–178; BP diastolic 50–77
[2016-11-10 08:46] LABS: CALCIUM, TOTAL 7.7 mg/dL (8.8-10.5); CREATININE 5.75 mg/dL (0.60-1.30); POTASSIUM 4.9 mmol/L (3.5-5.1)
[2016-11-10] MEDS: CLOPIDOGREL BISULFATE 75 MG TABLET PO SCH (09:00)
[2016-11-10 09:13] LABS: MAGNESIUM 2.1 mg/dL (1.80-2.40); PHOSPHORUS 7.8 mg/dL (2.5-4.9)
[2016-11-10] MEDS: AmLODIPine BESYLATE 10 MG TABLET PO SCH (09:28)
[2016-11-10] MEDS: VITAMIN B COMP/VIT C/FOLIC ACID CAPSULE PO SCH (09:31)
[2016-11-10] MEDS: CALCIUM ACETATE 667 MG CAPSULE PO SCH ×2 (12:00→18:00)
[2016-11-10] MEDS: ROSUVASTATIN CALCIUM 20 MG TABLET PO SCH (21:00)
[2016-11-11 04:24] VITALS: BP 166/73
[2016-11-11] MEDS: INSULIN ASPART 100 UNITS/ML SQ PRN (07:00)
[2016-11-11] MEDS ORDERED: DEXTROSE 50%-WATER 25 GM/50 ML SYRINGE IVP PRN (07:00)
[2016-11-11 07:19] VITALS: BP 148/70
[2016-11-11] MEDS: CALCIUM ACETATE 667 MG CAPSULE PO SCH ×3 (08:00→18:00)
[2016-11-11] MEDS: CLOPIDOGREL BISULFATE 75 MG TABLET PO SCH (08:00)
[2016-11-11 08:34] LABS: CALCIUM, TOTAL 7.8 mg/dL (8.8-10.5); CREATININE 6.8 mg/dL (0.60-1.30); MAGNESIUM 2.3 mg/dL (1.80-2.40); PHOSPHORUS 6.4 mg/dL (2.5-4.9); POTASSIUM 4.4 mmol/L (3.5-5.1)
[2016-11-11] MEDS: VITAMIN B COMP/VIT C/FOLIC ACID CAPSULE PO SCH (09:00)
[2016-11-11] MEDS: AmLODIPine BESYLATE 10 MG TABLET PO SCH (09:00)
[2016-11-11 11:33] VITALS: BP 114/59
[2016-11-11] MEDS ORDERED: HEPARIN SODIUM,PORCINE 1,000 UNITS/ML VIAL IVP ONE (12:00)
[2016-11-11 15:49] VITALS: BP 147/61
[2016-11-11 19:30] VITALS: BP 167/82
[2016-11-11 21:01] LABS: GLUCOSE COMMENT 1 Received Meds; GLUCOSE,POINT OF CARE 437 MG/DL (70-110)
[2016-11-11 21:01] LABS: GLUCOSE COMMENT 1 Received Meds; GLUCOSE,POINT OF CARE 298 MG/DL (70-110)
[2016-11-11 21:01] LABS: GLUCOSE,POINT OF CARE 140 MG/DL (70-110)
[2016-11-11] MEDS: ROSUVASTATIN CALCIUM 20 MG TABLET PO SCH (21:17)
[2016-11-12 00:04] VITALS: BP 138/48
[2016-11-12] MEDS: INSULIN ASPART 100 UNITS/ML SQ PRN ×4 (00:32→19:22)
[2016-11-12 04:20] VITALS: BP 129/51
[2016-11-12 06:05] LABS: EOSINOPHILS % (AUTO) 0 % (1.0-6.0); HEMATOCRIT 37.2 % (41-53); HEMOGLOBIN 12.3 g/dL (13.5-17.5); LYMPHOCYTES # (AUTO) 0.9 K/uL (1.0-4.8); LYMPHOCYTES % (AUTO) 5.4 % (22.0-44.0); MEAN CORPUSCULAR VOLUME 91 fL (80-100); MONOCYTES # (AUTO) 1.4 K/uL (0.1-1.0); MONOCYTES % (AUTO) 8.6 % (2.0-9.0); NEUTROPHILS # (AUTO) 14.5 K/uL (1.8-7.7); PLATELET COUNT (AUTO) 232 K/uL (150-450); RED BLOOD CELL COUNT(AUTO) 4.09 MIL/uL (4.50-5.90); RED CELL DISTRIBUTION WIDTH 13.2 % (11.5-14.5); WHITE BLOOD COUNT (AUTO) 16.8 K/uL (4.5-11.0)
[2016-11-12 06:34] LABS: RBC MORPHOLOGY COMMENT NORMAL RBC MORPH
[2016-11-12] MEDS ORDERED: 0.9% SODIUM CHLORIDE 10 ML SYRINGE IVP PRN (06:45)
[2016-11-12 07:00] LABS: CALCIUM, TOTAL 7.8 mg/dL (8.8-10.5); CREATININE 6.01 mg/dL (0.60-1.30); MAGNESIUM 2.1 mg/dL (1.80-2.40); POTASSIUM 4.3 mmol/L (3.5-5.1)
[2016-11-12 07:13] VITALS: BP 107/40
[2016-11-12] MEDS: AmLODIPine BESYLATE 10 MG TABLET PO SCH (08:47)
[2016-11-12] MEDS: CALCIUM ACETATE 667 MG CAPSULE PO SCH ×3 (08:47→18:00)
[2016-11-12] MEDS: CLOPIDOGREL BISULFATE 75 MG TABLET PO SCH (08:47)
[2016-11-12] MEDS: VITAMIN B COMP/VIT C/FOLIC ACID CAPSULE PO SCH (08:47)
[2016-11-12 09:07] LABS: GLUCOSE COMMENT 1 Received Meds; GLUCOSE,POINT OF CARE 347 MG/DL (70-110)
[2016-11-12 09:07] LABS: GLUCOSE COMMENT 1 Received Meds; GLUCOSE,POINT OF CARE 324 MG/DL (70-110)
[2016-11-12 12:08] VITALS: BP 151/62
[2016-11-12] MEDS: CHOLECALCIFEROL (VIT D3) 1,000 UNITS TABLET PO SCH (12:11)
[2016-11-12 15:17] VITALS: BP 138/52
[2016-11-12] MEDS: CefTRIAXone 1 GM/DEXTROSE 50 ML IV SCH (15:22)
[2016-11-12] MEDS: LEVOFLOXACIN 500 MG TABLET PO SCH (15:22)
[2016-11-12] MEDS ORDERED: SODIUM CHLORIDE 0.9% 100 ML ONE (15:22)
[2016-11-12 20:13] VITALS: BP 131/51
[2016-11-12] MEDS: ROSUVASTATIN CALCIUM 20 MG TABLET PO SCH (21:56)
[2016-11-13] VITALS (7 sets, daily range): BP systolic 109–155; BP diastolic 49–66
[2016-11-13] MEDS: INSULIN ASPART 100 UNITS/ML SQ PRN ×5 (02:12→20:02)
[2016-11-13 05:58] LABS: GLUCOSE COMMENT 1 Repeated; GLUCOSE,POINT OF CARE 416 MG/DL (70-110)
[2016-11-13 06:06] LABS: GLUCOSE COMMENT 1 Received Meds; GLUCOSE,POINT OF CARE 400 MG/DL (70-110)
[2016-11-13] MEDS: CALCIUM ACETATE 667 MG CAPSULE PO SCH ×3 (08:00→17:14)
[2016-11-13] MEDS: AmLODIPine BESYLATE 10 MG TABLET PO SCH (09:00)
[2016-11-13] MEDS ORDERED: ALBUMIN HUMAN 25%-12.5GM/50ML IV BOTTLE IV PRN (09:15)
[2016-11-13] MEDS ORDERED: MANNITOL 25%-12.5 GM/50 ML VIAL IVP PRN (09:15)
[2016-11-13] MEDS ORDERED: HEPARIN SODIUM,PORCINE 1,000 UNITS/ML VIAL IVP ONE ×3 (09:15→17:04)
[2016-11-13] MEDS ORDERED: SODIUM CHLORIDE 0.9% 2,000 ML IV ONE (09:56)
[2016-11-13] MEDS: CLOPIDOGREL BISULFATE 75 MG TABLET PO SCH (11:38)
[2016-11-13] MEDS: VITAMIN B COMP/VIT C/FOLIC ACID CAPSULE PO SCH (11:38)
[2016-11-13] MEDS: LEVOFLOXACIN 500 MG TABLET PO SCH (11:38)
[2016-11-13] MEDS: CHOLECALCIFEROL (VIT D3) 1,000 UNITS TABLET PO SCH (11:39)
[2016-11-13 14:23] LABS: GLUCOSE,POINT OF CARE 374 MG/DL (70-110)
[2016-11-13 14:23] LABS: GLUCOSE,POINT OF CARE 281 MG/DL (70-110)
[2016-11-13] MEDS: MetroNIDAZOLE 250 MG/NACL 50 ML IV SCH (15:34)
[2016-11-13] MEDS: CefTRIAXone 1 GM/DEXTROSE 50 ML IV SCH (16:36)
[2016-11-13] MEDS ORDERED: ALBUMIN HUMAN 25%-12.5GM/50ML IV BOTTLE IV ONE (17:04)
[2016-11-13] MEDS: ROSUVASTATIN CALCIUM 20 MG TABLET PO SCH (20:01)
[2016-11-13] MEDS ORDERED: INSULIN DETEMIR 100 UNITS/ML SQ SCH (21:00)
[2016-11-14] MEDS: MetroNIDAZOLE 250 MG/NACL 50 ML IV SCH ×2 (01:28→13:51)
[2016-11-14 04:50] VITALS: BP 154/74
[2016-11-14] MEDS: INSULIN ASPART 100 UNITS/ML SQ PRN ×2 (05:48→12:02)
[2016-11-14 07:27] LABS: GLUCOSE COMMENT 1 Received Meds; GLUCOSE,POINT OF CARE 396 MG/DL (70-110)
[2016-11-14 07:27] LABS: GLUCOSE COMMENT 1 Received Meds; GLUCOSE,POINT OF CARE 450 MG/DL (70-110)
[2016-11-14 07:30] LABS: EOSINOPHILS % (AUTO) 0.1 % (1.0-6.0); HEMATOCRIT 39.4 % (41-53); HEMOGLOBIN 12.7 g/dL (13.5-17.5); LYMPHOCYTES # (AUTO) 1.1 K/uL (1.0-4.8); LYMPHOCYTES % (AUTO) 6.7 % (22.0-44.0); MEAN CORPUSCULAR HEMOGLOBIN 29.8 pg (26.0-34.0); MEAN CORPUSCULAR HGB CONC 32.3 G/dL (31.0-37.0); MEAN CORPUSCULAR VOLUME 92 fL (80-100); MONOCYTES % (AUTO) 5.8 % (2.0-9.0); NEUTROPHILS # (AUTO) 15.1 K/uL (1.8-7.7); PLATELET COUNT (AUTO) 219 K/uL (150-450); RED BLOOD CELL COUNT(AUTO) 4.28 MIL/uL (4.50-5.90); WHITE BLOOD COUNT (AUTO) 17.2 K/uL (4.5-11.0)
[2016-11-14 07:36] LABS: NEUTROPHILS % (AUTO) 87.4 % (40.0-70.0)
[2016-11-14 07:37] LABS: RBC MORPHOLOGY COMMENT NORMAL RBC MORPH
[2016-11-14 07:40] LABS: CALCIUM, TOTAL 8.2 mg/dL (8.8-10.5); CREATININE 6.66 mg/dL (0.60-1.30); POTASSIUM 4.6 mmol/L (3.5-5.1)
[2016-11-14 07:41] VITALS: BP 133/56
[2016-11-14] MEDS: AmLODIPine BESYLATE 10 MG TABLET PO SCH (08:22)
[2016-11-14] MEDS: LEVOFLOXACIN 500 MG TABLET PO SCH (08:23)
[2016-11-14] MEDS: VITAMIN B COMP/VIT C/FOLIC ACID CAPSULE PO SCH (08:23)
[2016-11-14] MEDS: CALCIUM ACETATE 667 MG CAPSULE PO SCH ×3 (08:23→18:05)
[2016-11-14] MEDS: CHOLECALCIFEROL (VIT D3) 1,000 UNITS TABLET PO SCH (08:23)
[2016-11-14 11:41] VITALS: BP 141/98
[2016-11-14] MEDS: CefTRIAXone 1 GM/DEXTROSE 50 ML IV SCH (15:19)
[2016-11-14 15:27] VITALS: BP 129/72
[2016-11-14] MEDS: INSULIN REGULAR, HUMAN 100 UNITS/ML SQ PRN ×2 (18:06→20:00)
[2016-11-14 19:27] VITALS: BP 157/74
[2016-11-14] MEDS: ROSUVASTATIN CALCIUM 20 MG TABLET PO SCH (19:59)
[2016-11-14] MEDS: INSULIN DETEMIR 100 UNITS/ML SQ SCH (20:00)
[2016-11-14 23:19] VITALS: BP 153/68
[2016-11-15] VITALS (8 sets, daily range): BP systolic 113–155; BP diastolic 47–72
[2016-11-15] MEDS: MetroNIDAZOLE 250 MG/NACL 50 ML IV SCH ×2 (01:02→14:03)
[2016-11-15] MEDS: INSULIN REGULAR, HUMAN 100 UNITS/ML SQ PRN ×4 (05:24→21:23)
[2016-11-15] MEDS ORDERED: SODIUM CHLORIDE 0.9% 1,000 ML IV ONE ×2 (05:38)
[2016-11-15] MEDS: CALCIUM ACETATE 667 MG CAPSULE PO SCH ×3 (08:00→18:28)
[2016-11-15] MEDS: CHOLECALCIFEROL (VIT D3) 1,000 UNITS TABLET PO SCH (10:16)
[2016-11-15] MEDS: AmLODIPine BESYLATE 10 MG TABLET PO SCH (10:16)
[2016-11-15] MEDS: VITAMIN B COMP/VIT C/FOLIC ACID CAPSULE PO SCH (10:17)
[2016-11-15] MEDS: LEVOFLOXACIN 500 MG TABLET PO SCH (10:18)
[2016-11-15 13:57] LABS: GLUCOSE COMMENT 1 Received Meds; GLUCOSE,POINT OF CARE 199 MG/DL (70-110)
[2016-11-15 13:57] LABS: GLUCOSE COMMENT 1 Received Meds; GLUCOSE,POINT OF CARE 262 MG/DL (70-110)
[2016-11-15 13:57] LABS: GLUCOSE COMMENT 1 Received Meds; GLUCOSE,POINT OF CARE 243 MG/DL (70-110)
[2016-11-15 13:57] LABS: GLUCOSE COMMENT 1 Received Meds; GLUCOSE,POINT OF CARE 282 MG/DL (70-110)
[2016-11-15 13:57] LABS: GLUCOSE COMMENT 1 Received Meds; GLUCOSE,POINT OF CARE 343 MG/DL (70-110)
[2016-11-15] MEDS: CefTRIAXone 1 GM/DEXTROSE 50 ML IV SCH (15:40)
[2016-11-15] MEDS ORDERED: SODIUM CHLORIDE 0.9% 250 ML IV ONE (15:48)
[2016-11-15 18:26] LABS: GLUCOSE COMMENT 1 Received Meds; GLUCOSE,POINT OF CARE 336 MG/DL (70-110)
[2016-11-15] MEDS: ROSUVASTATIN CALCIUM 20 MG TABLET NG SCH (21:21)
[2016-11-15] MEDS: INSULIN DETEMIR 100 UNITS/ML SQ SCH (21:22)
[2016-11-16] MEDS: MetroNIDAZOLE 250 MG/NACL 50 ML IV SCH ×2 (01:12→14:42)
[2016-11-16 03:58] VITALS: BP 133/68
[2016-11-16] MEDS: INSULIN REGULAR, HUMAN 100 UNITS/ML SQ PRN ×4 (06:05→20:37)
[2016-11-16 07:16] VITALS: BP 125/60
[2016-11-16] MEDS: CHOLECALCIFEROL (VIT D3) 1,000 UNITS TABLET NG SCH (08:26)
[2016-11-16] MEDS: CALCIUM ACETATE 667 MG CAPSULE NG SCH ×3 (08:27→17:16)
[2016-11-16] MEDS: AmLODIPine BESYLATE 10 MG TABLET NG SCH (08:27)
[2016-11-16] MEDS: VITAMIN B COMP/VIT C/FOLIC ACID CAPSULE NG SCH (08:27)
[2016-11-16] MEDS: LEVOFLOXACIN 500 MG TABLET NG SCH (08:27)
[2016-11-16 10:40] VITALS: BP 132/57
[2016-11-16] MEDS: CefTRIAXone 1 GM/DEXTROSE 50 ML IV SCH (15:39)
[2016-11-16 16:02] VITALS: BP 122/66
[2016-11-16 17:52] LABS: GLUCOSE COMMENT 1 Received Meds; GLUCOSE,POINT OF CARE 187 MG/DL (70-110)
[2016-11-16 20:10] VITALS: BP 158/55
[2016-11-16] MEDS: ROSUVASTATIN CALCIUM 20 MG TABLET NG SCH (20:14)
[2016-11-16] MEDS: INSULIN DETEMIR 100 UNITS/ML SQ SCH (20:36)
[2016-11-16 20:46] LABS: GLUCOSE COMMENT 1 Received Meds; GLUCOSE,POINT OF CARE 268 MG/DL (70-110)
[2016-11-17 00:03] VITALS: BP 115/59
[2016-11-17] MEDS: MetroNIDAZOLE 250 MG/NACL 50 ML IV SCH ×2 (01:12→12:32)
[2016-11-17] MEDS ORDERED: HEPARIN SODIUM,PORCINE 1,000 UNITS/ML VIAL IVP ONE (04:04)
[2016-11-17] MEDS: INSULIN REGULAR, HUMAN 100 UNITS/ML SQ PRN ×2 (05:17→12:36)
[2016-11-17 05:36] VITALS: BP 101/55
[2016-11-17 06:44] LABS: CALCIUM, TOTAL 8.5 mg/dL (8.8-10.5); CREATININE 7.58 mg/dL (0.60-1.30); MAGNESIUM 2.3 mg/dL (1.80-2.40); PHOSPHORUS 4.3 mg/dL (2.5-4.9)
[2016-11-17 06:54] LABS: BASOPHILS # (AUTO) 0.01 K/uL (0.00-0.20); BASOPHILS % (AUTO) 0.1 % (0.0-2.0); EOSINOPHILS # (AUTO) 0.12 K/uL (0.00-0.70); EOSINOPHILS % (AUTO) 0.74 % (1.0-6.0); HEMATOCRIT 38.8 % (41-53); LYMPHOCYTES # (AUTO) 1.2 K/uL (1.0-4.8); LYMPHOCYTES % (AUTO) 7.9 % (22.0-44.0); MEAN CORPUSCULAR HGB CONC 33.6 G/dL (31.0-37.0); MEAN CORPUSCULAR VOLUME 89 fL (80-100); MONOCYTES # (AUTO) 1.4 K/uL (0.1-1.0); MONOCYTES % (AUTO) 8.8 % (2.0-9.0); NEUTROPHILS # (AUTO) 12.8 K/uL (1.8-7.7); PLATELET COUNT (AUTO) 270 K/uL (150-450); RED BLOOD CELL COUNT(AUTO) 4.34 MIL/uL (4.50-5.90); RED CELL DISTRIBUTION WIDTH 14.1 % (11.5-14.5); WHITE BLOOD COUNT (AUTO) 15.5 K/uL (4.5-11.0)
[2016-11-17 07:00] LABS: POTASSIUM 6.2 mmol/L (3.5-5.1)
[2016-11-17 07:35] VITALS: BP 118/67
[2016-11-17 08:55] LABS: NEUTROPHILS % (AUTO) 82.5 % (40.0-70.0)
[2016-11-17] MEDS: CHOLECALCIFEROL (VIT D3) 1,000 UNITS TABLET NG SCH (09:00)
[2016-11-17] MEDS: VITAMIN B COMP/VIT C/FOLIC ACID CAPSULE NG SCH (09:00)
[2016-11-17] MEDS: LEVOFLOXACIN 500 MG TABLET NG SCH (09:00)
[2016-11-17] MEDS: AmLODIPine BESYLATE 10 MG TABLET NG SCH (09:00)
[2016-11-17] MEDS: CALCIUM ACETATE 667 MG CAPSULE NG SCH ×3 (09:18→18:00)
[2016-11-17] MEDS ORDERED: SODIUM CHLORIDE 0.9% 2,000 ML IV ONE (10:24)
[2016-11-17 11:20] VITALS: BP 111/58
[2016-11-17 15:15] VITALS: BP 108/57
[2016-11-17] MEDS ORDERED: AMIODARONE HCL 540 MG in DEXTROSE 5%-WATER 239.2 ML IV ONE ×2 (16:30→23:30)
[2016-11-17] MEDS ORDERED: AMIODARONE HCL 360 MG in DEXTROSE 5%-WATER 242.8 ML IV ONE ×2 (16:40→17:30)
[2016-11-17 18:17] LABS: HEMATOCRIT 41.9 % (41-53); HEMOGLOBIN 13.6 g/dL (13.5-17.5); MEAN CORPUSCULAR HEMOGLOBIN 29.8 pg (26.0-34.0); MEAN CORPUSCULAR HGB CONC 32.5 G/dL (31.0-37.0); MEAN CORPUSCULAR VOLUME 92 fL (80-100); PLATELET COUNT (AUTO) 256 K/uL (150-450); RED BLOOD CELL COUNT(AUTO) 4.56 MIL/uL (4.50-5.90); WHITE BLOOD COUNT (AUTO) 28.5 K/uL (4.5-11.0)
[2016-11-17] MEDS ORDERED: SODIUM CHLORIDE 0.9% 500 ML IV ONE (18:27)
[2016-11-17 18:31] LABS: INR 1.2 (0.9-1.1); PROTHROMBIN TIME 12.2 SEC (9.4-11.6)
[2016-11-17 18:31] LABS: GLUCOSE COMMENT 1 Received Meds; GLUCOSE,POINT OF CARE 223 MG/DL (70-110)
[2016-11-17 18:32] LABS: GLUCOSE,POINT OF CARE 91 MG/DL (70-110)
[2016-11-17 18:32] LABS: GLUCOSE COMMENT 1 Received Meds; GLUCOSE,POINT OF CARE 150 MG/DL (70-110)
[2016-11-17 18:36] LABS: BAND NEUTROPHILS % (MANUAL) 27 % (1-5); LYMPHOCYTES % (MANUAL) 14 % (22-44); METAMYELOCYTES % 1 % (0-0); RBC MORPHOLOGY COMMENT NORMAL RBC MORPH; TOTAL CELLS COUNTED 100
[2016-11-17 18:42] LABS: ALBUMIN 1.7 g/dL (3.4-5.0); BILIRUBIN,TOTAL 0.4 mg/dL (0.1-1.0); CALCIUM, TOTAL 8.5 mg/dL (8.8-10.5); CREATININE 6.8 mg/dL (0.60-1.30); MAGNESIUM 2.7 mg/dL (1.80-2.40)
[2016-11-17 18:54] LABS: POTASSIUM 6.3 mmol/L (3.5-5.1)
[2016-11-17 18:55] LABS: PHOSPHORUS 12.8 mg/dL (2.5-4.9)
[2016-11-17 19:13] LABS: TEMPERATURE, FAHRENHEIT, BG 94.8 FAHREN (96.0-98.6)
[2016-11-17 19:16] LABS: ABG A-A DIFF O2 300.9 mmHg (10-20.0); ABG BASE EXCESS -19.5 mmol/L (-2.0-3.0); ABG HCO3 11.7 mmol/L (22.0-26.0); ABG OXYHEMOGLOBIN 98.8 % (94.0-100.0); ABG PCO2 21 mmHg (35-45)
[2016-11-17] MEDS ORDERED: SODIUM CHLORIDE 0.9% 250 ML IV ONE ×2 (19:33→22:30)
[2016-11-17 20:00] VITALS: BP 107/38
[2016-11-17] MEDS: INSULIN DETEMIR 100 UNITS/ML SQ SCH (21:00)
[2016-11-17] MEDS: ROSUVASTATIN CALCIUM 20 MG TABLET NG SCH (21:00)
[2016-11-17] MEDS ORDERED: SODIUM CHLORIDE 0.9% 1,000 ML IV ONE (21:07)
[2016-11-17] MEDS ORDERED: CALCIUM GLUCONATE 100 MG/ML 10 ML IVP ONE (21:47)
[2016-11-17] MEDS ORDERED: VANCOMYCIN HCL 1 GM/D5% WATER 200 ML IV PRN (22:00)
[2016-11-17] MEDS: EPINEPHrine 2 MG in DEXTROSE 5%-WATER 248 ML IV PRN ×2 (22:00→23:48)
[2016-11-17] MEDS ORDERED: VANCOMYCIN HCL 1 GM/D5% WATER 200 ML IV ONE (22:00)
[2016-11-17] MEDS ORDERED: DOPamine HCL 400 MG/D5%-WATER 250 ML IV ONE (22:56)
[2016-11-17] MEDS ORDERED: DOPamine HCL 400 MG/D5%-WATER 250 ML IV PRN (23:00)
[2016-11-17] MEDS: NOREPINEPHRINE 4 MG/D5%-WATER 250 ML IV PRN (23:00)
[2016-11-18] VITALS: BP 73/32
[2016-11-18] MEDS ORDERED: VASOPRESSIN 100 UNITS in DEXTROSE 5%-WATER 245 ML IV PRN ×2
[2016-11-18] MEDS ORDERED: PIPERACILLIN SODIUM/TAZOBACTAM 2.25 GM in DEXTROSE 5%-WATER 50 ML IV SCH ×2
[2016-11-18] MEDS ORDERED: PHENYLEPHRINE 200 MG/D5%-WATER 250 ML IV PRN
[2016-11-18 00:05] LABS: ALBUMIN 1.3 g/dL (3.4-5.0); BILIRUBIN,TOTAL 0.7 mg/dL (0.1-1.0); CALCIUM, TOTAL 8.1 mg/dL (8.8-10.5); CREATINE KINASE MB 57.1 ng/mL (0-5); CREATININE 5.85 mg/dL (0.60-1.30); TOTAL PROTEIN, SERUM 5.5 g/dL (6.4-8.2)
[2016-11-18 00:11] LABS: POTASSIUM 6.7 mmol/L (3.5-5.1)
[2016-11-18 00:57] LABS: GLUCOSE COMMENT 1 Received Meds; GLUCOSE,POINT OF CARE 231 MG/DL (70-110)
[2016-11-18] MEDS: EPINEPHrine 2 MG in DEXTROSE 5%-WATER 248 ML IV PRN (01:50)
[2016-11-18] MEDS: NOREPINEPHRINE 4 MG/D5%-WATER 250 ML IV PRN (01:52)
[2016-11-18] MEDS: MetroNIDAZOLE 250 MG/NACL 50 ML IV SCH (02:30)
[2016-11-18] MEDS ORDERED: CALCIUM GLUCONATE 100 MG/ML 10 ML IVP ONE (04:04)
[2016-11-18] MEDS ORDERED: EPINEPHrine 1:10,000 [1 MG/10 ML] SYRINGE IVP ONE ×2 (04:04)
[2016-11-18] MEDS ORDERED: LIDOCAINE HCL/PF 2% 5 ML SYRINGE IVP ONE (04:04)
[2016-11-18] MEDS ORDERED: AMIODARONE HCL 50 MG/ML 3 ML VIAL IVP ONE (04:04)
[2016-11-18] MEDS ORDERED: 0.9% SODIUM CHLORIDE 250 ML BAG IV ONE (04:04)
[2016-11-18] MEDS ORDERED: ATROPINE SULFATE 0.1 MG/ML 10 ML SYRINGE IVP ONE (04:04)
[2016-11-18] MEDS ORDERED: MAGNESIUM SULF/STERILE WATER 4 GM/100 ML IV BAG IV ONE (04:04)
[2016-11-18] MEDS ORDERED: SODIUM BICARBONATE [ADULT] 8.4% 50 MEQ/50 ML SYRINGE IVP ONE (04:04)
[2016-11-18] MEDS ORDERED: DOPamine HCL/D5W 400 MG/250 ML IV BAG IV ONE (04:04)
[2016-11-18 06:58] LABS: GLUCOSE,POINT OF CARE 255 MG/DL (70-110)
[2016-11-18 06:58] LABS: GLUCOSE COMMENT 1 Doctor Notified; GLUCOSE,POINT OF CARE 447 MG/DL (70-110)
[2016-11-18 06:58] LABS: GLUCOSE,POINT OF CARE 194 MG/DL (70-110)
[2016-11-18 06:58] LABS: GLUCOSE COMMENT 1 Received Meds; GLUCOSE,POINT OF CARE 335 MG/DL (70-110)
[2016-11-18 06:59] LABS: GLUCOSE COMMENT 1 Received Meds; GLUCOSE,POINT OF CARE 336 MG/DL (70-110)
[2016-11-18 06:59] LABS: GLUCOSE COMMENT 1 Received Meds; GLUCOSE,POINT OF CARE 218 MG/DL (70-110)
[2016-11-18 06:59] LABS: GLUCOSE COMMENT 1 Received Meds; GLUCOSE,POINT OF CARE 305 MG/DL (70-110)
[2016-11-18 06:59] LABS: GLUCOSE COMMENT 1 Received Meds; GLUCOSE,POINT OF CARE 287 MG/DL (70-110)
[2016-11-18 07:59] VITALS: BP 134/56
[2016-11-18] MEDS ORDERED: SODIUM CHLORIDE 0.9% 1,000 ML IV ONE (11:00)
[2016-11-18] MEDS ORDERED: AMIODARONE HCL 750 MG in DEXTROSE 5%-WATER 485 ML IV SCH ×2 (16:30→18:00)
== END 2016-11-18 04:05 | disposition expired | DRG 64 ==
LOC: EMS 16:13 → UNDOADMIN 11-09 12:31 → AHU 11-09 12:31 → 5S 11-09 13:43 → ICU 11-17 17:50
PROVIDERS: ADMIT Family Medicine; ATTEND Family Medicine
PROC: 0DH67UZ Insertion of Feeding Device into Stomach, Via Natural or Artificial Opening (ICD-10-PCS; 2016-11-11)
PROC: 5A1D60Z (ICD-10-PCS; 2016-11-11)
PROC: 06HM33Z Insertion of Infusion Device into Right Femoral Vein, Percutaneous Approach (ICD-10-PCS; 2016-11-11)
PROC: 5A1935Z Respiratory Ventilation, Less than 24 Consecutive Hours (ICD-10-PCS; principal; 2016-11-17)
PROC: 0BH17EZ Insertion of Endotracheal Airway into Trachea, Via Natural or Artificial Opening (ICD-10-PCS; 2016-11-17)
PROC: 04HY32Z Insertion of Monitoring Device into Lower Artery, Percutaneous Approach (ICD-10-PCS; 2016-11-17)
DX: I63.9 Cerebral infarction, unspecified (principal); G93.40 Encephalopathy, unspecified; N18.6 End stage renal disease; J96.00 Acute respiratory failure, unspecified whether with hypoxia or hypercapnia; E43 Unspecified severe protein-calorie malnutrition; E87.2 Acidosis; G81.94 Hemiplegia, unspecified affecting left nondominant side; I13.2 Hypertensive heart and chronic kidney disease with heart failure and with stage 5 chronic kidney disease, or end stage renal disease; I47.2 Ventricular tachycardia; I46.9 Cardiac arrest, cause unspecified; I49.01 Ventricular fibrillation; E11.22 Type 2 diabetes mellitus with diabetic chronic kidney disease; I50.9 Heart failure, unspecified; D64.9 Anemia, unspecified; D72.829 Elevated white blood cell count, unspecified; E11.21 Type 2 diabetes mellitus with diabetic nephropathy; E78.5 Hyperlipidemia, unspecified; E83.51 Hypocalcemia; E87.5 Hyperkalemia; R13.10 Dysphagia, unspecified; E11.65 Type 2 diabetes mellitus with hyperglycemia; Z99.2 Dependence on renal dialysis; Z68.21 Body mass index [BMI] 21.0-21.9, adult; Z86.718 Personal history of other venous thrombosis and embolism; Z79.82 Long term (current) use of aspirin; Z79.02 Long term (current) use of antithrombotics/antiplatelets
CPT/HCPCS: 70450; 70551; 74000; 82306; 82805; 82962; 83735; 84100; 87040; 87081; 87340; 92526; 92610; 92950; 93005; 94002; 96374; 96375; 99291; J0171; J0282; J0461; J0610; J0696; J1265; J1644; J1815; J2370; J2543; J3370; J3475; J3490; J7030; J7040; J7050; J7060; P9047